=== PATIENT | female | born 1990 | race Caucasian/White ===

== ENCOUNTER 2018-07-27 01:43 | Emergency (ER) | payer SELFPAY ==
[~2018-07-27] VITALS: Ht 170.2 cm; Wt 56.7 kg
[2018-07-27 01:59] VITALS: Ht 170.2 cm; Wt 56.7 kg
[2018-07-27 06:07] VITALS: BP 122/77
== END 2018-07-27 06:07 | disposition home or self-care (01) ==
LOC: ED 01:43
DX: S02.69XA Fracture of mandible of other specified site, initial encounter for closed fracture (principal); Y99.8 Other external cause status; W21.07XA Struck by softball, initial encounter; Y93.64 Activity, baseball; Y92.89 Other specified places as the place of occurrence of the external cause; S01.511A Laceration without foreign body of lip, initial encounter
CPT/HCPCS: J0690; J2001; J2270; J2405